=== PATIENT | female | born 2000 | race African-American/Black ===

== ENCOUNTER 2023-03-21 21:42 | Emergency (ER) | payer SELFPAY | END 2023-03-21 23:12 | disposition home or self-care (01) | LOC: JD.ED 21:42 | DX: J02.9 Acute pharyngitis, unspecified (principal); F17.210 Nicotine dependence, cigarettes, uncomplicated | CPT/HCPCS: 87651-QW; 99283 ==

== ENCOUNTER 2023-04-18 23:15 | Emergency (ER) | payer SELFPAY ==
[2023-04-18 23:34] LABS: BASOPHILS PERCENT AUTO 0.4 % (0.0-1.0); EOSINOPHILS ABSOLUTE AUTO 0.2 K/mm3 (0.0-0.4); EOSINOPHILS PERCENT AUTO 2.1 % (0.0-6.0); HEMOGLOBIN 11.9 gm/dl (12.0-16.0); IMMATURE GRAN ABSOLUTE AUTO 0.02 K/mm3 (0.00-0.05); IMMATURE GRAN PERCENT AUTO 0.3 % (0.0-0.4); LYMPHOCYTES ABSOLUTE AUTO 3.6 K/mm3 (1.0-4.8); LYMPHOCYTES PERCENT AUTO 48.6 % (24.0-44.0); MEAN CORPUSCULAR HEMOGLOBIN 26.7 pg (28.0-32.0); MEAN CORPUSCULAR HGB CONC 32.2 g/dl (32.0-36.0); MEAN CORPUSCULAR VOLUME 83.1 fl (83.0-99.0); MEAN PLATELET VOLUME 11.4 fl (9.4-12.3); MONOCYTES ABSOLUTE AUTO 0.6 K/mm3 (0.0-0.8); MONOCYTES PERCENT AUTO 8.6 % (0.0-8.0); NEUTROPHILS ABSOLUTE AUTO 2.9 K/mm3 (1.8-7.7); PLATELET COUNT,PLT 193 K/mm3 (150-400); RED BLOOD CELL COUNT 4.45 M/mm3 (4.10-5.30)
[2023-04-18] MEDS: HYDROmorphone 1 MG/ML Syringe IVPUSH STA (23:47)
[2023-04-18] MEDS: HYDROmorphone 1 MG/ML Syringe ONE (23:47)
[2023-04-18 23:52] LABS: A/G RATIO 0.7 (1-2); ALBUMIN 3.5 g/dl (3.4-5.0); ANION GAP 15.5 (5-15); BILIRUBIN TOTAL 0.2 mg/dL (0.2-1.0); CALCIUM 8.3 mg/dL (8.5-10.1); CREATININE 0.8 mg/dL (0.55-1.02); EST CRCL DRUG DOSING (CG) 105.45 mL/min; MAGNESIUM 1.7 mg/dL (1.8-2.4); POTASSIUM,K 3.5 mEq/L (3.5-5.1); PROTEIN TOTAL,TP 8.5 g/dl (6.4-8.2)
[2023-04-19] MEDS: Acetaminophen 325 MG Tab PO ONE (00:06)
[2023-04-19] MEDS: Diphtheria,Pertussis(Acell),Tetanus Vaccine 0.5 ML Syringe IM ONE (00:07)
[2023-04-19] MEDS: Lidocaine 1% 5 ML VIAL INJECT ONE (01:44)
[2023-04-19] MEDS: Lidocaine 1% 10 ML MDV ONE (01:44)
[2023-04-19] MEDS: Lidocaine 1% 10 ML MDV INJECT ONE (01:45)
== END 2023-04-19 02:46 ==
LOC: JD.ED 23:15
DX: S01.21XA Laceration without foreign body of nose, initial encounter (principal); S51.812A Laceration without foreign body of left forearm, initial encounter; Z23 Encounter for immunization; Y04.0XXA Assault by unarmed brawl or fight, initial encounter
CPT/HCPCS: 36415; 70450; 70486; 73090; 80053; 83735; 85025; 90471; 90715; 96374; 99285; A9270; J1170; 99284; J3490

== ENCOUNTER 2023-04-23 10:54 | Emergency (ER) | payer SELFPAY | END 2023-04-23 11:13 | disposition home or self-care (01) | LOC: JD.ED 10:54 | DX: Z48.01 Encounter for change or removal of surgical wound dressing (principal) | CPT/HCPCS: 99281 ==